=== PATIENT | male | born 1980 | race Caucasian/White ===

== ENCOUNTER → 2024-06-15 17:31 | Outpatient (REF) | payer OTHER, SELFPAY | LOC: RAD 17:31 | PROVIDERS: ATTENDING PHYSICIAN Internal Medicine Rheumatology; FAMILY PHYSICIAN Internal Medicine | DX: R05.9 Cough, unspecified (principal) | CPT/HCPCS: 71046 ==

== ENCOUNTER → 2025-01-03 11:25 | Outpatient (REF) | payer OTHER, SELFPAY | LOC: RAD 11:25 | PROVIDERS: ATTENDING PHYSICIAN Hospitalist; OTHER PHYSICIAN Internal Medicine Rheumatology | DX: M54.50 Low back pain, unspecified (principal) | CPT/HCPCS: 72100 ==